=== PATIENT | female | born 1970 | race Caucasian/White ===

== ENCOUNTER 2018-07-24 17:54 | Observation (INO) ==
[2018-07-24] MEDS ORDERED: Sod Chloride 0.9% Inj 1,000 ML IV.SIG ONE (18:17)
--- NOTE | 2018-07-24 18:28 | ED ---
HPI General Chief Complaint: Medical Clearance Stated Complaint: Jojo Eval/DBPD Time Seen by Provider: 07/24/18 18:06 Source: patient, RN notes reviewed and police Mode of arrival: ambulatory Limitations: no limitations History of Present Illness HPI Narrative: 40-year-old female is brought to the emergency department under [employer] for local police for psychiatric evaluation. According the [employer] act , the patient attempted overdose on Zoloft and was drinking alcohol. The patient states that her and she took some of his pills believing that it would lower her heart rate, but she has no idea what it was. She states she thought it started with a "SELMA". Patient states she took a handful and states it was approximately 6-7 pills around noon. She admits to drinking alcohol, tequila, since 11 am today. She states she has a lot of stress in her life and has been fighting with her boyfriend as well. Patient states that she took the pills to "calm down". She denies suicidal ideation to me. Moderate severity. Upon further investigating, it appears she took sotalol. MD complaint: Reports intentional overdose Onset (ago): unknown Intent: wanted to go to sleep Context: Intentional Overdose: relationship problems Associated symptoms: depression Treatments Prior to Arrival: other ([employer] Act) Related Data Allergies Allergy/AdvReac Type Severity Reaction Status Date / Time No Known Allergies Allergy Verified 07/24/18 18:17 Review of Systems ROS: all other systems reviewed are negative PMFSH Medical History Medical History Arrhythmia (Acute) Depression (Acute) Social History Social History Substance History: Active Abuse Second Hand Smoke Exposure: Yes Smoking Status: Current every day smoker Tobacco Type: Cigarettes How Often Do You Have a Drink Containing Alcohol: 2 to 3 times a week Substance Abuse Detail Marijuana: Substance Use Status: Active Route Used Substance Abuse: Inhalation Exam Narrative Exam Narrative: GENERAL: Well-nourished, well-developed female patient, ambulatory. Afebrile. SKIN: Focused skin assessment warm/dry. HEAD: Normocephalic. Atraumatic. EYES: No scleral icterus. No injection or drainage. NECK: Supple, trachea midline. No JVD or lymphadenopathy. CARDIOVASCULAR: Regular rate and rhythm without murmurs, gallops, or rubs. RESPIRATORY: Breath sounds equal bilaterally. No accessory muscle use. Lung sounds are clear to auscultation GASTROINTESTINAL: Abdomen soft, non-tender, nondistended. MUSCULOSKELETAL: No cyanosis, or edema. BACK: Nontender without obvious deformity. No CVA tenderness. PSYCHIATRIC: No delusional thought processes. No hallucinations. Course Initial Documented Vital Signs Pulse Oximetry 98 07/24/18 18:17 Last Documented Vital Signs Temperature 98.4 F 07/25/18 11:00 Pulse Rate 57 L 07/25/18 11:00 Respiratory Rate 20 07/25/18 11:00 Blood Pressure 121/71 07/25/18 11:00 Pulse Oximetry 95 07/25/18 11:00 Medical Decision Making EMRE Attestation EMRE supervised visit: Yes Attestation: I, Dr. Boogie, have reviewed the advance practice practitioner's documentation and am in agreement, met with the patient face to face, made the diagnosis, and the medical decision making was done by me. *My assessment and Findings: Overdose vs. suicidal ideation vs. depression 48yo F with depression here because she was feeling depressed and said she took what sounds like her late 's sotalol. Pt is not very forthcoming with the amount. Said it was about 12pm that she took it so it has been around 6 hours already. Said she did have nausea and vomiting after but not immediately. She is AAOx3 and denies any complaints. Physical exam unremarkable. Will place pt on continuous pvc monitor, obtain EKG, labs including alcohol level, acetaminophen and salicylate level. Pt admits to drinking vodka. No focal neurologic deficits. Labs reviewed, no leukocytosis. H/H normal. Elevated platelet count. Creatinine mildly elevated at 1.48. Calcium mildly elevated at 11.1. Pt given IVF. UA showed RBC 14. WBC 5. Culture not indicated. She is on her menstrual period like blood is likely from that. Salicylate low at 2.0. Acetaminophen less than 2.0. Alcohol 104. Utox positive for cocaine and cannabinoids. Repeat EKG showed a prolong Qtc of 475ms which is worse than prior QTc 456ms. I discussed with poison control and confirmed that sotalol can cause prolong QT. He recommends to repeat EKG Q2 hours until it improves and monitor pt on pvc monitor. Discussed with Dr. Jensen and accepted to his service. MDM Narrative Medical decision making narrative: 40-year-old female presents to the emergency department under [employer] act for psychiatric evaluation by local police. Apparently, she took a handful of what is believed to be sotalol and has been drinking tequila. [employer] act states she took a Zoloft. EKG, CBC, CMP, magnesium , PT/INR, alcohol level, urine drug screen, salicylate level, Tylenol level are ordered and pending. Patient is given normal saline 1 L IV bolus. I spoke to poison control @ [id number]. Poison control recommends, UDS, acetaminophen level, salicylate level, alcohol, CMP, coags, UPT, EKG, cardiac monitoring, symptomatic and supportive care, repeat EKG in 2 hours; monitor for 6 hours. EKG shows SR, HR 61, no acute ST changes. CBC shows no acute abnormality. CMP shows creatinine of 1.48. Magnesium is 2.2. PT/INR is 10.0/1.0. PTT is 20.8. Alcohol level is 104. UDS is positive for cocaine and cannabinoids. Salicylate level is 2.0. Acetaminophen level is less than 2.0. UPT is negative. Dr. Boogie will monitor patient and medically clear patient when appropriate. Medical Screen Exam Complete: Yes Emergency Medical Condition: Yes Differential Diagnosis Differential Diagnosis: overdose vs. depression vs. anxiety vs. suicidal ideation Medical Records Medical records reviewed: Yes I reviewed the patient's medical records. Lab Data Result diagrams: 07/25/18 06:49 07/25/18 06:49 POC Results POC Urine Results Negative Lab Results 07/24/18 07/24/18 07/24/18 Range/Units 18:45 18:45 18:45 WBC 7.4 (4.0-11.0) th/mm3 RBC 4.27 (4.00-5.30) mil/mm3 Hgb 12.0 (11.6-15.3) gm/dL Hct 35.4 (35.0-46.0) % MCV 82.9 (80.0-100.0) fL MCH 28.1 (27.0-34.0) pg MCHC 33.9 (32.0-36.0) % RDW 13.9 (11.6-17.2) % Plt Count 685 H (150-450) th/mm3 MPV 7.1 (7.0-11.0) fL Neut % (Auto) 71.6 H (16.0-70.0) % Lymph % (Auto) 18.0 (9.0-44.0) % [place] % (Auto) 4.5 (0.0-8.0) % Eos % (Auto) 4.9 H (0.0-4.0) % Baso % (Auto) 1.0 (0.0-2.0) % Neut # (Auto) 5.3 (1.8-7.7) th/mm3 Lymph # (Auto) 1.3 (1.0-4.8) th/mm3 [place] # (Auto) 0.3 (0.0-0.9) th/mm3 Eos # (Auto) 0.4 (0.0-0.4) th/mm3 Baso # (Auto) 0.1 (0.0-0.2) th/mm3 WBC Differential . Differential Comment Auto diff final PT 10.0 (9.8-11.6) sec INR 1.0 Ratio APTT (23.4-31.7) sec Sodium 140 (136-145) meq/L Potassium 3.8 (3.5-5.1) meq/L Chloride 105 (98-107) meq/L Carbon Dioxide 27.5 (21.0-32.0) meq/L Anion Gap 8 (5-15) meq/L BUN 9 (7-18) mg/dL Creatinine 1.48 H (0.50-1.00) mg/dL Estimated GFR 38 L (>89) mL/min Random Glucose 112 H (74-106) mg/dL Calcium 11.1 H (8.5-10.1) mg/dL Magnesium 2.2 (1.5-2.5) mg/dL Total Bilirubin 0.2 (0.2-1.0) mg/dL AST 14 L (15-37) U/L ALT 15 (10-53) U/L Alkaline Phosphatase 109 (45-117) U/L Total Protein 7.8 (6.4-8.2) g/dL Albumin 3.4 (3.4-5.0) g/dL TSH (0.358-3.740) uIU/mL Urine Color (Yellw/Straw) Urine Clarity (Clear) Urine pH (5.0-8.5) Ur Specific [place] (1.002-1.035) Urine Protein (Neg-Trace) mg/dL Urine Glucose (UA) (Negative) mg/dL Urine Ketones (Negative) mg/dL Urine Occult Blood (Negative) Urine Nitrate (Negative) Urine Bilirubin (Negative) Urine Urobilinogen (Less than 2) mg/dL Ur Leukocyte Esterase (Negative) Urine RBC (0-3) /hpf Urine WBC (0-5) /hpf Ur Squamous Epith Cells (0-5) /hpf Urine Bacteria (None) /hpf Urine Mucus (Occasional) /lpf Micro UA Comment Ur Microscopic Review Urine Culture Comments Salicylates (2.8-20.0) mg/dL Urine Opiates Screen (Neg) Acetaminophen Less than 2.0 L (10.0-30.0) mcg/mL Ur Barbiturates Screen (Neg) Ur Amphetamines Screen (Neg) U Benzodiazepines Scrn (Neg) Urine Cocaine Screen (Neg) U Cannabinoids Screen (Neg) Serum Alcohol 104 H (0-5) mg/dL 07/24/18 07/24/18 07/24/18 Range/Units 18:45 18:45 19:53 WBC (4.0-11.0) th/mm3 RBC (4.00-5.30) mil/mm3 Hgb (11.6-15.3) gm/dL Hct (35.0-46.0) % MCV (80.0-100.0) fL MCH (27.0-34.0) pg MCHC (32.0-36.0) % RDW (11.6-17.2) % Plt Count (150-450) th/mm3 MPV (7.0-11.0) fL Neut % (Auto) (16.0-70.0) % Lymph % (Auto) (9.0-44.0) % [place] % (Auto) (0.0-8.0) % Eos % (Auto) (0.0-4.0) % Baso % (Auto) (0.0-2.0) % Neut # (Auto) (1.8-7.7) th/mm3 Lymph # (Auto) (1.0-4.8) th/mm3 [place] # (Auto) (0.0-0.9) th/mm3 Eos # (Auto) (0.0-0.4) th/mm3 Baso # (Auto) (0.0-0.2) th/mm3 WBC Differential Differential Comment PT (9.8-11.6) sec INR Ratio APTT 20.8 L (23.4-31.7) sec Sodium (136-145) meq/L Potassium (3.5-5.1) meq/L Chloride (98-107) meq/L Carbon Dioxide (21.0-32.0) meq/L Anion Gap (5-15) meq/L BUN (7-18) mg/dL Creatinine (0.50-1.00) mg/dL Estimated GFR (>89) mL/min Random Glucose (74-106) mg/dL Calcium (8.5-10.1) mg/dL Magnesium (1.5-2.5) mg/dL Total Bilirubin (0.2-1.0) mg/dL AST (15-37) U/L ALT (10-53) U/L Alkaline Phosphatase (45-117) U/L Total Protein (6.4-8.2) g/dL Albumin (3.4-5.0) g/dL TSH (0.358-3.740) uIU/mL Urine Color (Yellw/Straw) Urine Clarity (Clear) Urine pH (5.0-8.5) Ur Specific [place] (1.002-1.035) Urine Protein (Neg-Trace) mg/dL Urine Glucose (UA) (Negative) mg/dL Urine Ketones (Negative) mg/dL Urine Occult Blood (Negative) Urine Nitrate (Negative) Urine Bilirubin (Negative) Urine Urobilinogen (Less than 2) mg/dL Ur Leukocyte Esterase (Negative) Urine RBC (0-3) /hpf Urine WBC (0-5) /hpf Ur Squamous Epith Cells (0-5) /hpf Urine Bacteria (None) /hpf Urine Mucus (Occasional) /lpf Micro UA Comment Ur Microscopic Review Urine Culture Comments Salicylates 2.0 L (2.8-20.0) mg/dL Urine Opiates Screen Neg (Neg) Acetaminophen (10.0-30.0) mcg/mL Ur Barbiturates Screen Neg (Neg) Ur Amphetamines Screen Neg (Neg) U Benzodiazepines Scrn Neg (Neg) Urine Cocaine Screen Pos H (Neg) U Cannabinoids Screen Pos H (Neg) Serum Alcohol (0-5) mg/dL 07/24/18 07/25/18 07/25/18 Range/Units 19:53 06:49 06:49 WBC 7.7 (4.0-11.0) th/mm3 RBC 3.49 L (4.00-5.30) mil/mm3 Hgb 10.1 L (11.6-15.3) gm/dL Hct 28.8 L (35.0-46.0) % MCV 82.4 (80.0-100.0) fL MCH 28.9 (27.0-34.0) pg MCHC 35.1 (32.0-36.0) % RDW 13.8 (11.6-17.2) % Plt Count 562 H (150-450) th/mm3 MPV 7.1 (7.0-11.0) fL Neut % (Auto) 60.1 (16.0-70.0) % Lymph % (Auto) 28.1 (9.0-44.0) % [place] % (Auto) 8.1 H (0.0-8.0) % Eos % (Auto) 2.8 (0.0-4.0) % Baso % (Auto) 0.9 (0.0-2.0) % Neut # (Auto) 4.7 (1.8-7.7) th/mm3 Lymph # (Auto) 2.2 (1.0-4.8) th/mm3 [place] # (Auto) 0.6 (0.0-0.9) th/mm3 Eos # (Auto) 0.2 (0.0-0.4) th/mm3 Baso # (Auto) 0.1 (0.0-0.2) th/mm3 WBC Differential . Differential Comment Auto diff final PT (9.8-11.6) sec INR Ratio APTT (23.4-31.7) sec Sodium 144 (136-145) meq/L Potassium 3.8 (3.5-5.1) meq/L Chloride 111 H (98-107) meq/L Carbon Dioxide 24.6 (21.0-32.0) meq/L Anion Gap 8 (5-15) meq/L BUN 9 (7-18) mg/dL Creatinine 1.03 H (0.50-1.00) mg/dL Estimated GFR 57 L (>89) mL/min Random Glucose 79 (74-106) mg/dL Calcium 10.5 H (8.5-10.1) mg/dL Magnesium (1.5-2.5) mg/dL Total Bilirubin (0.2-1.0) mg/dL AST (15-37) U/L ALT (10-53) U/L Alkaline Phosphatase (45-117) U/L Total Protein (6.4-8.2) g/dL Albumin (3.4-5.0) g/dL TSH (0.358-3.740) uIU/mL Urine Color Light-yellow (Yellw/Straw) Urine Clarity Clear (Clear) Urine pH 6.0 (5.0-8.5) Ur Specific [place] 1.004 (1.002-1.035) Urine Protein Negative (Neg-Trace) mg/dL Urine Glucose (UA) Negative (Negative) mg/dL Urine Ketones Negative (Negative) mg/dL Urine Occult Blood Large H (Negative) Urine Nitrate Negative (Negative) Urine Bilirubin Negative (Negative) Urine Urobilinogen Less than 2 (Less than 2) mg/dL Ur Leukocyte Esterase Trace H (Negative) Urine RBC 14 H (0-3) /hpf Urine WBC 5 (0-5) /hpf Ur Squamous Epith Cells 1 (0-5) /hpf Urine Bacteria Occasional H (None) /hpf Urine Mucus Few H (Occasional) /lpf Micro UA Comment Culture not ind Ur Microscopic Review Not Reportable Urine Culture Comments Culture not ind Salicylates (2.8-20.0) mg/dL Urine Opiates Screen (Neg) Acetaminophen (10.0-30.0) mcg/mL Ur Barbiturates Screen (Neg) Ur Amphetamines Screen (Neg) U Benzodiazepines Scrn (Neg) Urine Cocaine Screen (Neg) U Cannabinoids Screen (Neg) Serum Alcohol (0-5) mg/dL 07/25/18 Range/Units 06:49 WBC (4.0-11.0) th/mm3 RBC (4.00-5.30) mil/mm3 Hgb (11.6-15.3) gm/dL Hct (35.0-46.0) % MCV (80.0-100.0) fL MCH (27.0-34.0) pg MCHC (32.0-36.0) % RDW (11.6-17.2) % Plt Count (150-450) th/mm3 MPV (7.0-11.0) fL Neut % (Auto) (16.0-70.0) % Lymph % (Auto) (9.0-44.0) % [place] % (Auto) (0.0-8.0) % Eos % (Auto) (0.0-4.0) % Baso % (Auto) (0.0-2.0) % Neut # (Auto) (1.8-7.7) th/mm3 Lymph # (Auto) (1.0-4.8) th/mm3 [place] # (Auto) (0.0-0.9) th/mm3 Eos # (Auto) (0.0-0.4) th/mm3 Baso # (Auto) (0.0-0.2) th/mm3 WBC Differential Differential Comment PT (9.8-11.6) sec INR Ratio APTT (23.4-31.7) sec Sodium (136-145) meq/L Potassium (3.5-5.1) meq/L Chloride (98-107) meq/L Carbon Dioxide (21.0-32.0) meq/L Anion Gap (5-15) meq/L BUN (7-18) mg/dL Creatinine (0.50-1.00) mg/dL Estimated GFR (>89) mL/min Random Glucose (74-106) mg/dL Calcium (8.5-10.1) mg/dL Magnesium (1.5-2.5) mg/dL Total Bilirubin (0.2-1.0) mg/dL AST (15-37) U/L ALT (10-53) U/L Alkaline Phosphatase (45-117) U/L Total Protein (6.4-8.2) g/dL Albumin (3.4-5.0) g/dL TSH 1.120 (0.358-3.740) uIU/mL Urine Color (Yellw/Straw) Urine Clarity (Clear) Urine pH (5.0-8.5) Ur Specific [place] (1.002-1.035) Urine Protein (Neg-Trace) mg/dL Urine Glucose (UA) (Negative) mg/dL Urine Ketones (Negative) mg/dL Urine Occult Blood (Negative) Urine Nitrate (Negative) Urine Bilirubin (Negative) Urine Urobilinogen (Less than 2) mg/dL Ur Leukocyte Esterase (Negative) Urine RBC (0-3) /hpf Urine WBC (0-5) /hpf Ur Squamous Epith Cells (0-5) /hpf Urine Bacteria (None) /hpf Urine Mucus (Occasional) /lpf Micro UA Comment Ur Microscopic Review Urine Culture Comments Salicylates (2.8-20.0) mg/dL Urine Opiates Screen (Neg) Acetaminophen (10.0-30.0) mcg/mL Ur Barbiturates Screen (Neg) Ur Amphetamines Screen (Neg) U Benzodiazepines Scrn (Neg) Urine Cocaine Screen (Neg) U Cannabinoids Screen (Neg) Serum Alcohol (0-5) mg/dL ECG Data EKG Prior to Arrival: No Attestation: I personally reviewed and interpreted this ECG as follows: Interpretation: NSR 61bpm. Normal axis. TWI V2. Mild ST depression V3-V6. QTc 456ms. Narrow QRS. Discharge Plan Discharge Disposition Patient Disposition: 30 Still Patient Discharge Condition Condition: Stable Discharge Order Discharge Orders: Discharge Order (Routine); Ordered 07/25/18 Ordered By: Xi De León Discharge Details Diagnosis: Overdose Physicians Team ED Provider: Mickie Boogie ED Midlevel Provider: Juany Hay Primary Care Provider: UNKNOWN, Attending Provider: Vishal Jensen Other Providers: Scooter Smith Status ED Status: Left Department Discharge Information Discharge Date/Time: 07/24/18 23:07
[2018-07-24 19:12] LABS: Baso # (Auto) 0.1 th/mm3 (0.0-0.2); Eos # (Auto) 0.4 th/mm3 (0.0-0.4); Eos % (Auto) 4.9 % (0.0-4.0); Hematocrit 35.4 % (35.0-46.0); Lymph # (Auto) 1.3 th/mm3 (1.0-4.8); Mean Corpuscular HGB Conc 33.9 % (32.0-36.0); Mean Corpuscular Hemoglobin 28.1 pg (27.0-34.0); Mean Corpuscular Volume 82.9 fL (80.0-100.0); Mean Platelet Volume 7.1 fL (7.0-11.0); Mono # (Auto) 0.3 th/mm3 (0.0-0.9); Mono % (Auto) 4.5 % (0.0-8.0); Neut # (Auto) 5.3 th/mm3 (1.8-7.7); Neut % (Auto) 71.6 % (16.0-70.0); Platelet Count 685 th/mm3 (150-450); Red Blood Count 4.27 mil/mm3 (4.00-5.30); Red Cell Distribution Width 13.9 % (11.6-17.2); White Blood Count 7.4 th/mm3 (4.0-11.0)
[2018-07-24 19:28] LABS: Albumin 3.4 g/dL (3.4-5.0); Anion Gap 8 meq/L (5-15); Blood Urea Nitrogen 9 mg/dL (7-18); Calcium 11.1 mg/dL (8.5-10.1); Carbon Dioxide 27.5 meq/L (21.0-32.0); Chloride 105 meq/L (98-107); Glomerular Filtration Rate 38 mL/min (>89); Glucose,Random 112 mg/dL (74-106); Magnesium 2.2 mg/dL (1.5-2.5); Potassium 3.8 meq/L (3.5-5.1); Sodium 140 meq/L (136-145)
[2018-07-24 19:29] LABS: Alanine Aminotransferase 15 U/L (10-53); Alcohol 104 mg/dL (0-5); Aspartate Aminotransferase 14 U/L (15-37)
[2018-07-24 19:31] LABS: Alkaline Phosphatase 109 U/L (45-117); Total Protein 7.8 g/dL (6.4-8.2)
[2018-07-24 20:18] LABS: Amphetamine Screen,Urine Neg (Neg); Barbiturate Screen,Urine Neg (Neg); Cannabinoid Screen,Urine Pos (Neg); Cocaine Screen,Urine Pos (Neg); Opiate Screen,Urine Neg (Neg)
[2018-07-24 20:30] LABS: Bacteria,Urine Occasional /hpf; Bilirubin,Urine Negative (Negative); Clarity,Urine Clear (Clear); Glucose,Urine (UA) Negative (Negative); Leukocyte Esterase,Urine Trace (Negative); Mucus,Urine Few /lpf (Occasional); Nitrite,Urine Negative (Negative); Specific Gravity,Urine 1.004 (1.002-1.035); Squamous Epithelial Cell,Urine 1 /hpf (0-5)
[2018-07-24 20:31] LABS: Color,Urine Light-Yellow (Yellw/Straw)
[2018-07-24] MEDS ORDERED: Sod Chloride 0.9% Inj 1,000 ML IV.SIG SCH (21:30)
[2018-07-24] MEDS ORDERED: Acetaminophen 325 MG Tablet PO PRN (21:51)
[2018-07-24] MEDS ORDERED: Bisacodyl 10 MG Supp RECTAL PRN (21:51)
[2018-07-24] MEDS: Sod Chloride 0.9% Inj 1,000 ML IV.CONT SCH (23:04)
--- NOTE | 2018-07-25 07:05 | P.HPIM ---
History of Present Illness Primary Care Physician: Dr. Chinchilla at [facility] Chief Complaint: overdose History of Present Illness: This a 48-year-old female patient with past medical history which includes carpal tunnel syndrome bilateral upper extremities, generalized anxiety disorder, major depressive disorder, nicotine dependence and hyperparathyroidism. Patient was brought to the emergency department under [employer] act for local police for psychiatric evaluation. According the [employer] act , the patient attempted overdose on Zoloft and was drinking alcohol. The patient states that her and she took some of his pills believing that it would lower her heart rate, but she has no idea what it was. She states she thought it started with a "SELMA". Patient states she took a handful and states it was approximately 6-7 pills around noon 07/24/18. She admits to drinking alcohol, tequila, since 11 am 07/24/18. She states she has a lot of stress in her life and has been fighting with her boyfriend as well. Patient states that she took the pills to "calm down". Upon further investigating, it appears she took 6-7 tablets of sotalol. Patient reports wanted to go to sleep. At this time patient is able to awake to verbal stimuli. Denies shortness of breath chest pain nausea vomiting diarrhea constipation fevers or chills. PMH: carpal tunnel syndrome bilateral upper extremities, generalized anxiety disorder , major depressive disorder, nicotine dependence and hyperparathyroidism PSxH: Cholecystectomy 2017 Family medical history Father had a stroke and heart disease Social history Patient is a EtOH use 2-3 times per week Smokes approximately 1 pack/week only when she drinks Urine tox positive for cocaine and cannabinoids. Medications and Allergies Allergies Allergy/AdvReac Type Severity Reaction Status Date / Time No Known Allergies Allergy Verified 07/24/18 18:17 Active Medications: Active Medications Acetaminophen (Tylenol) 650 mg PO Q4H PRN PRN Reason: Temp > 100.4 Al Hydroxide/Mg Hydroxide (Milk Of Magnesia Liq) 30 ml PO Q12H PRN PRN Reason: Mild Constipation Bisacodyl (Dulcolax Supp) 10 mg RECTAL DAILY PRN PRN Reason: SEVERE CONSITIPATION Sodium Chloride (Ns Inj) 1,000 mls @ 100 mls/hr IV.CONT .Q10H KAITLYNN Last Admin: 07/24/18 23:04 Dose: 100 mls/hr Lactulose (Lactulose Liq) 30 ml PO DAILY PRN PRN Reason: SEVERE CONSITIPATION Ondansetron HCl (Zofran Inj) 4 mg IV.PUSH Q6H PRN PRN Reason: NAUSEA OR VOMITING Senna/Docusate Sodium (Karen-Colace) 1 tab PO BID KAITLYNN Sennosides (Senokot) 17.2 mg PO Q12H PRN PRN Reason: Moderate Constipation Sodium Chloride (Ns Flush) 2 ml IV.FLUSH PRN PRN PRN Reason: FLUSH AFTER USING IV ACCESS Physical Exam Vital signs: Last Vital Signs Temp 98.6 F 07/25/18 03:47 Pulse 70 07/25/18 03:47 Resp 16 07/25/18 03:47 BP 115/69 07/25/18 03:47 Pulse Ox 95 07/25/18 03:47 Narrative: GENERAL: This is a well-nourished, well-developed patient, in no apparent distress. CARDIOVASCULAR: Regular rate and rhythm RESPIRATORY: Clear to auscultation. Breath sounds equal bilaterally. GASTROINTESTINAL: Abdomen soft, non-tender, nondistended. Normal active bowel sounds MUSCULOSKELETAL: Extremities without clubbing, cyanosis, or edema. NEURO: Alert & Oriented x4 to person, place, time, situation. Moves all ext x4 Results Labs CBC & Chem 7: 07/25/18 06:49 07/25/18 06:49 Caprini VTE Risk Assessment Caprini VTE Risk Assessment: No/Low Risk (score <= 1) Caprini Risk Assessment Model: Point Value = 1 Point Value = 2 Point Value = 3 Point Value = 5 Age 41-60 Minor surgery BMI > 25 kg/m2 Swollen legs Varicose veins or History of unexplained or recurrent spontaneous Oral contraceptives or hormone replacement Sepsis (< 1 month) Serious lung disease, including pneumonia (< 1 month) Abnormal pulmonary function Acute myocardial infarction Congestive heart failure (< 1 month) History of inflammatory bowel disease Medical patient at bed rest Age 61-74 Arthroscopic surgery Major open surgery (> 45 min) Laparoscopic surgery (> 45 min) Malignancy Confined to bed (> 72 hours) Immobilizing plaster cast Central venous access Age >= 75 History of VTE Family history of VTE Factor V Leiden Prothrombin [id number] Lupus anticoagulant Anticardiolipin antibodies Elevated serum homocysteine Heparin-induced thrombocytopenia Other congenital or acquired thrombophilia Stroke (< 1 month) Elective arthroplasty Hip, pelvis, or leg fracture Acute spinal cord injury (< 1 month) Prophylaxis Regimen: Total Risk Factor Score Risk Level Prophylaxis Regimen 0-1 Low Early ambulation 2 Moderate Order ONE of the following: *Sequential Compression Device (SCD) *Heparin 5000 units SQ BID 3-4 Higher Order ONE of the following medications: *Heparin 5000 units SQ TID *Enoxaparin/Lovenox 40 mg SQ daily (WT < 150 kg, CrCl > 30 mL/min) *Enoxaparin/Lovenox 30 mg SQ daily (WT < 150 kg, CrCl > 10-29 mL/min) *Enoxaparin/Lovenox 30 mg SQ BID (WT < 150 kg, CrCl > 30 mL/min) AND/OR *Sequential Compression Device (SCD) 5 or more Highest Order ONE of the following medications: *Heparin 5000 units SQ TID (Preferred with Epidurals) *Enoxaparin/Lovenox 40 mg SQ daily (WT < 150 kg, CrCl > 30 mL/min) *Enoxaparin/Lovenox 30 mg SQ daily (WT < 150 kg, CrCl > 10-29 mL/min) *Enoxaparin/Lovenox 30 mg SQ BID (WT < 150 kg, CrCl > 30 mL/min) AND *Sequential Compression Device (SCD) Assessment and Plan Plan This a 48-year-old female patient with past medical history which includes carpal tunnel syndrome bilateral upper extremities, generalized anxiety disorder , major depressive disorder, nicotine dependence and hyperparathyroidism. Patient was brought to the emergency department under [employer] act for local police for psychiatric evaluation. According the [employer] act, the patient attempted overdose and was drinking alcohol. Upon further investigating, it appears she took approximately 6-7 tablets of sotalol. Patient reports wanted to go to sleep. Sotalol overdose Anxiety/Depression ER provider spoke with poison control @ 2311 07/24/18. Per ER documentation Poison control recommends, UDS, acetaminophen level, salicylate level, alcohol, CMP, coags, UPT, EKG, cardiac monitoring, symptomatic and supportive care, repeat EKG in 2 hours; monitor for 6 hours. Salicylate low at 2.0. Acetaminophen less than 2.0. Alcohol 104. Urine tox positive for cocaine and cannabinoids. Initial EKG revealed: NSR 61bpm. Normal axis. TWI V2. Mild ST depression V3- V6. QTc 456ms. Repeat EKG showed a prolong Qtc of 475ms which is worse than prior QTc 456ms. repeat EKG Q2 hours until it improves and monitor pt on supervisor payroll. serial QTc 456 -> 475 -> 488 -> 455 -> 442 Continuous telemetry monitoring Consultation to psychiatry, recommending admission to in patient psych for stabilization DC to in patient pysch for stabilization and medication adjustment JANINE Review of outpatient records reveals baseline creatinine around 0.67, 0.57 On admission patient's BUN was 9 creatinine was 1.48 with an estimated GFR of 38 repeat creatinine 07/25 1.03 IV fluids DVT prophylaxis with SCDs DC to in patient pysch Attending Attestation Patient examined. Assessment and plan formulated with Xi De León PA-C. I agree with the above. overdose on sotolol. but pt admits she immediately vomited most of them back up. overnight the QTc prolonged but the final 2 ekg's showed much impovement. She has some sinus jayjay but denies any dizziness. she is not happy about transfer to psych unit. she gives hx of hypercalcemia and primary hyperparathyroidism. H&P: Quality VTE Deep Vein Thrombosis/Pulmonary Embolism Present on Admission: No
[2018-07-25 08:33] LABS: Baso # (Auto) 0.1 th/mm3 (0.0-0.2); Baso % (Auto) 0.9 % (0.0-2.0); Eos # (Auto) 0.2 th/mm3 (0.0-0.4); Eos % (Auto) 2.8 % (0.0-4.0); Hematocrit 28.8 % (35.0-46.0); Hemoglobin 10.1 gm/dL (11.6-15.3); Lymph # (Auto) 2.2 th/mm3 (1.0-4.8); Lymph % (Auto) 28.1 % (9.0-44.0); Mean Corpuscular HGB Conc 35.1 % (32.0-36.0); Mean Corpuscular Hemoglobin 28.9 pg (27.0-34.0); Mean Corpuscular Volume 82.4 fL (80.0-100.0); Mean Platelet Volume 7.1 fL (7.0-11.0); Mono # (Auto) 0.6 th/mm3 (0.0-0.9); Mono % (Auto) 8.1 % (0.0-8.0); Neut # (Auto) 4.7 th/mm3 (1.8-7.7); Neut % (Auto) 60.1 % (16.0-70.0); Platelet Count 562 th/mm3 (150-450); Red Blood Count 3.49 mil/mm3 (4.00-5.30); Red Cell Distribution Width 13.8 % (11.6-17.2); White Blood Count 7.7 th/mm3 (4.0-11.0)
[2018-07-25 08:59] LABS: Calcium 10.5 mg/dL (8.5-10.1); Carbon Dioxide 24.6 meq/L (21.0-32.0); Potassium 3.8 meq/L (3.5-5.1)
[2018-07-25] MEDS ORDERED: Senna/Docusate Sodium 8.6/50 MG Tablet PO SCH (09:00)
[2018-07-25] MEDS: Sod Chloride 0.9% Inj 1,000 ML IV.CONT SCH (09:04)
--- NOTE | 2018-07-25 09:34 | MB ---
cc: Olvin Mcgraw MD DATE: 07/25/2018 PHYSICIAN REQUESTING CONSULTATION: Vishal Jensen MD REASON FOR CONSULTATION: Drug overdose, depression. HISTORY OF PRESENT ILLNESS: Ms. Funk is a 48-year-old female with no reported previous psychiatric diagnoses, who presents under a Rodriguez Act by law enforcement alleging that the patient overdosed on Zoloft and alcohol. The patient reportedly told officers that this was to slow down her heart rate, but officers obtained collateral from the patient's boyfriend indicating that there was some concern for intentional overdose for self-harm. Reviewing the electronic medical record, I see no previous psychiatric contact within our system. The patient has been medically admitted for management of her overdose, and it appears that the patient in fact overdosed on sotalol, not Zoloft. The patient seen and examined. Chart reviewed. Case discussed with midlevel provider from the primary team. On my examination today, the patient says that she made her presenting overdose on 5-7 sotalol tablets in the setting of alcohol intoxication. She says that she made this overdose in front of her boyfriend "just to get attention." She said that she wanted her boyfriend to listen to her, because she is not happy being in [facility] and wants to return to [place] where her children are located. She does admit to feeling depressed and her affect is fairly dysphoric. She says that she has been feeling this way since her 's passing in 12/2017. In addition to low mood, the patient endorses 15-20 pound weight loss since 12/2017 secondary to not eating properly. She seems fairly anhedonic. She denies any suicidal or homicidal ideation at this time, although it is unclear whether she is reliable to contract for safety. She denies any audiovisual hallucinations. I can elicit no delusional material. I can elicit no hypomanic or manic symptoms, nor does the patient provide any history of same. The remainder of the psychiatric ROS is negative. No acute physical complaints. With the patient's permission, I did endeavor to obtain collateral information from her boyfriend, Kostas Martinez at [phone]. I have left a generic voicemail for Mr. Martinez requesting a call back. PAST PSYCHIATRIC HISTORY: The patient reports that she has had difficulty adjusting following her 's passing, although it does not appear she has received a formal psychiatric diagnosis. She has seen psychiatrists in the past. She denies any history of psychiatric admissions or suicide attempts, however. FAMILY HISTORY: Patient reports that one of her children completed suicide in 2006. CHEMICAL DEPENDENCY HISTORY: The patient admits to use of crack cocaine and alcohol. She says that her alcohol consumption has cut down recently. She does admit to drinking more heavily than she has lately last night. Typical consumption is 1 or 2 mixed drinks per week per patient report. She denies any history of blackouts, DTs, or seizures. She also admits to use of cannabis for the first time since adolescence last night to "mellow me out." SOCIAL HISTORY: The patient reports that her second in 12/2017. She was previously and . She is presently with her boyfriend Kostas and has been with him for about 6 months. She has 4 children. She denies any history. Denies any legal history. Denies any access to guns or firearms. Denies any restorationism or spiritual beliefs. Denies any history of abuse or mistreatment. PAST MEDICAL HISTORY: Includes a chart history of arrhythmia. MEDICATIONS: Sotalol 80 mg daily. ALLERGIES: NO KNOWN ALLERGIES. REVIEW OF SYSTEMS: Except as noted in HPI, this is negative. PHYSICAL EXAMINATION: VITAL SIGNS: Temperature is 98.6, pulse 56, respirations 20, blood pressure 146/74, pulse oximetry 94% on room air. Physical examination has been completed by the primary team. On my examination today, the patient is clinically sober. She has no abnormal motor movements. There is no evidence of intoxication or withdrawal at this time. LABORATORY DATA: Reviewed. CBC reveals a normocytic anemia with a hemoglobin of 10.1, platelet count is 562, slightly elevated, white blood cell count is 7.7, within normal limits. BMP reveals decreased GFR at 57. LFTs are within normal limits. Urinalysis reveals large occult blood and trace leukocyte esterase, but no pyuria. Urine toxicology is positive for cocaine and cannabinoids. Alcohol level was 104 on presentation here. MENTAL STATUS EXAMINATION: The patient is in hospital attire. She is fairly well groomed. She is awake and alert and oriented x3. No evidence of delirium. No motor abnormalities noted. Speech is somewhat slow with increased speech latency. Language and fund of knowledge are average. Focus and concentration are intact. Memory is grossly intact on clinical exam. Mood is depressed and affect is restricted and dysphoric. Thought process linear but somewhat slowed. No loosening of associations. No delusional material elicited. Denies any auditory or visual hallucinations. He denies any suicidal or homicidal ideation, intent or plan, although it is unclear whether she is reliable to contract for safety. Insight and judgment seem poor. ASSESSMENT: 1. Adjustment disorder with depressed mood, F43.21, rule out major depressive episode. 2. Polysubstance abuse, F19.10 This is a 48-year-old female with psychiatric history as detailed above, who presents under a Rodriguez Act following a sotalol overdose in the setting of alcohol intoxication. On my examination today, the patient reports that the presenting overdose was gestural to get attention from her boyfriend. The patient does admit to depressive symptomatology, and a major depressive episode is in the differential diagnosis. The patient has several acute risk factors for self-harm, including recent overdose, recent intoxication, depressive symptoms. She also has several chronic risk factors including likely substance use disorder, family history of suicide attempts, multiple recent losses, including loss of job and . It appears there are limited protective factors presently, although collateral information is not available at present. Weighing the relevant factors, I regional commercial sales manager that the patient is presently at increased risk for ongoing self-harm and, barring some extremely reassuring collateral information, likely will require psychiatric hospitalization for observation and perhaps stabilization. I would recommend continuing the patient with a sitter for safety while she is in the CDU. I would also recommend considering initiation of a CIWA scale for management of any alcohol withdrawal. Following medical stabilization, please contact the psych charge nurse to reach out to on-call psychiatrist to discuss transfer to inpatient psychiatric unit. Medical psychiatric unit might also be an alternative prior to medical clearance, so long as the patient does not require telemetry or other measures not available on the medical psychiatric unit. I will defer psychotropic medication management to the inpatient psychiatric team. Thank you very much for this consultation. Please call or page [phone] during daylight hours with questions. MD JACQUE Capellanfrancis , 09:04 AM , 09:19 AM BRENDA
--- NOTE | 2018-07-25 17:14 | ECG ---
Date Performed: 07/24/2018 Time Performed: 18:44:52 PTAGE: 48 years EKG: Sinus rhythm NONSPECIFIC T-WAVE ABNORMALITY BORDERLINE ECG NO PREVIOUS TRACING DOCTOR: Tien Pryor Interpretating Date/Time 07/25/2018 17:11:57
--- NOTE | 2018-07-25 17:30 | ECG ---
Date Performed: 07/24/2018 Time Performed: 22:34:08 PTAGE: 48 years EKG: Sinus rhythm NONSPECIFIC T-WAVE ABNORMALITY PROLONGED QT INTERVAL ABNORMAL ECG PREVIOUS TRACING : 07/24/2018 18.44 Since the previous tracing, no significant change noted DOCTOR: Tien Pryor Interpretating Date/Time 07/25/2018 17:29:12
--- NOTE | 2018-07-25 17:31 | ECG ---
Date Performed: 07/25/2018 Time Performed: 04:14:39 PTAGE: 48 years EKG: SINUS BRADYCARDIA WITH OCCASIONAL SUPRAVENTRICULAR PREMATURE COMPLEXES BORDERLINE ECG PREVIOUS TRACING : 07/25/2018 00.58 Since the previous tracing, no significant change noted DOCTOR: Tien Pryor Interpretating Date/Time 07/25/2018 17:29:27
--- NOTE | 2018-07-25 20:11 | ECG ---
Date Performed: 07/25/2018 Time Performed: 00:58:50 PTAGE: 48 years EKG: Sinus rhythm NONSPECIFIC T-WAVE ABNORMALITY Compared to previous tracing, QT interval slightly shorter BORDERLINE ECG PREVIOUS TRACING : 07/24/2018 22.34 DOCTOR: Tien Pryor Interpretating Date/Time 07/25/2018 20:10:04
--- NOTE | 2018-07-25 20:11 | ECG ---
Date Performed: 07/24/2018 Time Performed: 20:47:54 PTAGE: 48 years EKG: SINUS BRADYCARDIA NONSPECIFIC T-WAVE ABNORMALITY PROLONGED QT INTERVAL Compared to previous tracing, QT interval is slightly longer ABNORMAL ECG NO PREVIOUS TRACING DOCTOR: Tien Pryor Interpretating Date/Time 07/25/2018 20:09:39
== END 2018-07-25 15:11 ==
LOC: NEDA 17:54 → NEDAMB 17:54 → NEPFCDU 22:49
PROVIDERS: ADMIT Hospitalist; ATTEND Hospitalist

== ENCOUNTER 2018-07-25 15:19 | Inpatient (IN) ==
[2018-07-25] MEDS ORDERED: Acetaminophen 325 MG Tablet PO PRN (15:34)
[2018-07-25] MEDS ORDERED: Bisacodyl 10 MG Supp RECTAL PRN (15:34)
[2018-07-25] MEDS ORDERED: Aluminum/Magnesium/Simethacone Susp 30 ML UDC PO PRN (15:34)
[2018-07-25] MEDS ORDERED: Senna/Docusate Sodium 8.6/50 MG Tablet PO SCH (21:00)
[2018-07-26 09:20] LABS: Calcium 10.7 mg/dL (8.5-10.1); Carbon Dioxide 24.4 meq/L (21.0-32.0); Potassium 3.6 meq/L (3.5-5.1)
[2018-07-26 09:30] LABS: Chol/HDL Ratio 5.33 Ratio; HDL Cholesterol 29.8 mg/dL (40.0-60.0); Thyroid Stimulating Hormone 2.75 uIU/mL (0.358-3.740)
--- NOTE | 2018-07-26 09:37 | P.HPPSY ---
Provisional Diagnosis Admission Date: July 25, 2018 15:19 [place] I.: 1. Adjustment disorder with depressed mood 2. Polysubstance abuse [place] II.: Deferred Competence Certification of Person's Competence To Provide Express and Informed Consent I have personally examined Anum Funk, a person being served at [facility] on, July 26, 2018 0937. Express and informed consent means consent voluntarily given in writing, by a competent person, after sufficient explanation and disclosure of the subject matter involved to enable the person to make a knowing and willful decision without any element of force, fraud, deceit, duress, or other form of constraint or coercion. This person is 18 years of age or older, is not now known to be incompetent to consent to treatment with a guardian advocate, and does not have a health care surrogate or proxy currently making medical treatment decisions. I have found this person to be one of the following: [X] Competent to provide express and informed consent, as defined above, for voluntary admission to this facility and is competent to provide express and informed consent for treatment. He/she has the consistent capacity to make well reasoned, willful, and knowing decisions concerning his or her medical or mental health treatment. The person fully and consistently understands the purpose of the admission for examination/placement and is fully capable of personally exercising all rights assured under [place] [] Incompetent to provide express and informed consent to voluntary admission, and this is incompetent to provide express and informed consent to treatment. The person must be transferred to involuntary status and a petition for a guardian advocate filed with the Circuit Court. [] Refusing to provide express and informed consent to voluntary admission but is competent to provide express and informed consent for treatment. The person must be discharged or transferred to involuntary status. Form shall be completed within 24 hours of a person's arrival at the receiving facility and filed in the clinical record of each person: 1. Admitted on a voluntary basis 2. Permitted to provide express and informed consent to his/her own treatment 3. Allowed to transfer from involuntary to voluntary status 4. Prior to permitting a person to consent to his or her own treatment after having been previously found incompetent to consent to treatment. History of Present Illness Capacity: Has capacity Chief Complaint: Rodriguez act History of Present Illness: From my consult note of yesterday: Ms. Funk is a 48-year-old female with no reported previous psychiatric diagnoses, who presents under a Rodriguez Act by law enforcement alleging that the patient overdosed on Zoloft and alcohol. The patient reportedly told officers that this was to slow down her heart rate, but officers obtained collateral from the patient's boyfriend indicating that there was some concern for intentional overdose for self-harm. Reviewing the electronic medical record, I see no previous psychiatric contact within our system. The patient has been medically admitted for management of her overdose, and it appears that the patient in fact overdosed on sotalol, not Zoloft. The patient seen and examined. Chart reviewed. Case discussed with midlevel provider from the primary team. On my examination today, the patient says that she made her presenting overdose on 5-7 sotalol tablets in the setting of alcohol intoxication. She says that she made this overdose in front of her boyfriend "just to get attention." She said that she wanted her boyfriend to listen to her, because she is not happy being in [facility] and wants to return to [place] where her children are located. She does admit to feeling depressed and her affect is fairly dysphoric. She says that she has been feeling this way since her 's passing in 12/2017. In addition to low mood, the patient endorses 15-20 pound weight loss since 12/2017 secondary to not eating properly. She seems fairly anhedonic. She denies any suicidal or homicidal ideation at this time, although it is unclear whether she is reliable to contract for safety. She denies any audiovisual hallucinations. I can elicit no delusional material. I can elicit no hypomanic or manic symptoms, nor does the patient provide any history of same. The remainder of the psychiatric ROS is negative. No acute physical complaints. With the patient's permission, I did endeavor to obtain collateral information from her boyfriend, Kostas Martinez at [phone]. I have left a generic voicemail for Mr. Martinez requesting a call back. PAST PSYCHIATRIC HISTORY: The patient reports that she has had difficulty adjusting following her 's passing, although it does not appear she has received a formal psychiatric diagnosis. She has seen psychiatrists in the past. She denies any history of psychiatric admissions or suicide attempts, however. FAMILY HISTORY: Patient reports that one of her children completed suicide in 2006. CHEMICAL DEPENDENCY HISTORY: The patient admits to use of crack cocaine and alcohol. She says that her alcohol consumption has cut down recently. She does admit to drinking more heavily than she has lately last night. Typical consumption is 1 or 2 mixed drinks per week per patient report. She denies any history of blackouts, DTs, or seizures. She also admits to use of cannabis for the first time since adolescence last night to "mellow me out." SOCIAL HISTORY: The patient reports that her second in 12/2017. She was previously and . She is presently with her boyfriend Kostas and has been with him for about 6 months. She has 4 children. She denies any history. Denies any legal history. Denies any access to guns or firearms. Denies any pentecostal or spiritual beliefs. Denies any history of abuse or mistreatment.. On my examination today, 07/26: Patient seen and examined with nurse. Chart reviewed. Case discussed with nursing staff. On my examination today the patient says of her depression "I just let myself get down too low." She denies any suicidal ideation at this time. Slept well overnight. Denies any hopelessness or worthlessness. She tells me "I have a goal." She says that her daughter is flying down to take her back to [place]. No hypomanic or manic symptoms. Denies any audiovisual hallucinations. No delusional material. Complains of some left eye discomfort and swelling but no reported visual decrement. No other physical complaints. Past history is as noted above, unchanged. Patient reports previous trials of Zoloft and Trintellix. She has chronic pain in the form of sciatica. - Inpatient Certification I certify that the inpatient services were ordered in accordance with Medicare regulations governing the order. This includes certification that hospital inpatient services are reasonable and necessary and in the case of services not specified as inpatient-only under 42 CFR 419.22(n), that they are appropriately provided as inpatient services in accordance to with the 2-midnight benchmark under 43 CFR 412.3(e) I certify that inpatient psychiatric hospital services are medically necessary. Evaluation and treatment and/or diagnostic testing are expected to improve the patient's condition. The patient needs on a daily basis, active treatment furnished directly by or requiring the supervision of inpatient psychiatric facility personnel. Estimated Total Length of Stay (Days): 5 (3-5) Plans for Post Hospital Care: Not yet determined Review of Systems All other systems reviewed negative except as stated in HPI [facility] - History History Provided By: Patient - Medical History Medical History: Medical History (Last Updated 07/24/18 @ 19:13 by Lizbeth Owens) Arrhythmia Depression - Tobacco History Second Hand Smoke Exposure: Yes Tobacco Use In Past 30 Days: Yes Smoking Status: Current every day smoker Tobacco Type: Cigarettes - Alcohol History How Often Do You Have a Drink Containing Alcohol: 2 to 3 times a week - Substance Use History Substance History: Active Abuse - Substance Use Type Crack/Cocaine Status: Active Route Used: Inhalation Frequency: 2-3/WEEK Reason for Use: Fit In - Immunization History Tetanus Immunization: >5 Years Hx Influenza Vaccine This Season: No Quality Measures - Psychiatric History Psychological trauma history: See above - Patient Strengths Patient's strengths (minimum of 2): In monitored setting. Verbally fluent. Medications and Allergies Active Medications: Active Medications Acetaminophen (Tylenol) 650 mg PO Q4H PRN PRN Reason: Pain 1-5 or Temp >101F Al Hydrox/Mg Hydrox/Simethicone (Mag-Al Plus Susp Liq) 30 ml PO Q6H PRN PRN Reason: DYSPEPSIA Al Hydroxide/Mg Hydroxide (Milk Of Magnesia Liq) 30 ml PO Q12H PRN PRN Reason: Mild Constipation Diphenhydramine HCl (Benadryl) 50 mg PO HS PRN PRN Reason: INSOMNIA Hydroxyzine HCl (Atarax) 50 mg PO Q6H PRN PRN Reason: ANXIETY Allergies Allergy/AdvReac Type Severity Reaction Status Date / Time No Known Allergies Allergy Verified 07/24/18 18:17 Results - Labs CBC & Chem 7: 07/26/18 08:10 Labs: Laboratory Results - last 24 hr 07/26/18 08:10 Sodium 142 Potassium 3.6 Chloride 110 H Carbon Dioxide 24.4 Anion Gap 8 BUN 10 Creatinine 1.20 H Estimated GFR 48 L Random Glucose 95 Calcium 10.7 H Triglycerides 172 H Cholesterol 159 LDL Cholesterol, Calc 95 HDL Cholesterol 29.8 L Cholesterol/HDL Ratio 5.33 TSH 2.750 Labs reviewed. Exam Vital signs: Vital Signs 07/25/18 16:00 07/25/18 17:43 07/25/18 22:00 Temperature 98.6 F 97.6 F Pulse Rate 64 57 L Respiratory Rate 18 18 18 Blood Pressure 125/68 159/104 H Pulse Oximetry 94 L 99 07/26/18 05:53 Temperature Pulse Rate Respiratory Rate 18 Blood Pressure Pulse Oximetry Intake & Output 07/25/18 07/26/18 07/26/18 18:59 06:59 18:59 Intake Total 360 / 360 360 / 360 360 / 360 Balance 360 / 360 360 / 360 360 / 360 Weight 71.1 kg Intake: Oral 360 / 360 360 / 360 360 / 360 Other: Weight On Admission 71.1 kg Narrative: Physical exam completed by primary team in CDU. On my examination today, the patient appears to be in no acute physical distress. No motor abnormalities noted. No signs of intoxication or withdrawal noted. Labs and vitals reviewed. Mental Status Examination Appearance: Appropriate Consciousness: Alert Orientation: x4 Motor Activity: Other (No motor abnormalities noted) Speech: Unremarkable Language: Adequate Fund of Knowledge: Adequate Attention and Concentration: Adequate Memory: Unremarkable (Grossly intact on clinical exam) Mood: Other (Dysphoric) Affect: Appropriate Thought Process & Associations: Intact Thought Content: Appropriate Hallucination Type: None Delusion Type: None Suicidal Ideation: No (Unclear whether patient is reliable to contract for safety) Suicidal Plan: No Suicidal Intention: No Homicidal Ideation: No Homicidal Plan: No Homicidal Intention: No Insight: Fair Judgment: Impulsive Assessment and Plan - Assessment (1) Adjustment disorder with depressed mood Code(s): F43.21 - Adjustment disorder with depressed mood Status: Acute (2) Polysubstance abuse Code(s): F19.10 - Other psychoactive substance abuse, uncomplicated Status: Acute - Plan Plan: 48-year-old female with psychiatric history as detailed above who presents in transfer from the CDU under a Rodriguez act following sotalol overdose. On my examination today, the patient denies suicidal ideation but has some ongoing issues with low mood. We discussed pharmacotherapeutic options at length for management of this issue. Given her chronic pain history we settle on a trial of Cymbalta. Patient will be admitted to the inpatient unit for observation and stabilization. Admit inpatient. Voluntary status. Start Cymbalta 30 mg daily for management of mood. Atarax as needed for anxiety. Benadryl as needed for sleep. R/B/A for medications discussed with patient. CIWA scale with Ativan for the management of any withdrawal. Seizure precautions. Thiamine and folate. Hospitalist consultation for left eye discomfort and to continue to follow from the medical floor. Check a beta hCG. Vitals every shift. Counselor to see. Collateral information. Disposition planning. Estimated length of stay: 3-5 days. Justification for Continued Inpatient Stay: See above Discharge Planning: Pending outcome of observation Request Healthcare Surrogate/Guardian Advocate?: No
[2018-07-26] MEDS ORDERED: LORazepam 1 MG Tablet PO PRN (09:50)
[2018-07-26] MEDS ORDERED: Haloperidol Inj 5 MG/ML Ampul IV.PUSH PRN (09:50)
--- NOTE | 2018-07-26 13:50 | ECG ---
Date Performed: 07/26/2018 Time Performed: 12:49:47 PTAGE: 48 years EKG: SINUS BRADYCARDIA WITH SINUS ARRHYTHMIA BORDERLINE ECG PREVIOUS TRACING : 07/25/2018 04.14 Since the previous tracing, no significant change noted DOCTOR: Lemuel Turpin Interpretating Date/Time 07/26/2018 13:47:42
--- NOTE | 2018-07-26 14:28 | P.CONIM ---
History of Present Illness Service: [facility] Hospitalist Requesting Physician: Olvin Mcgraw Reason for Consult: follow from medical floor, left eye discomfort Primary Care Provider: UNKNOWN History of Present Illness: This a 48-year-old female patient with past medical history which includes carpal tunnel syndrome bilateral upper extremities, generalized anxiety disorder, major depressive disorder, nicotine dependence and hyperparathyroidism. Patient was brought to the emergency department under [employer] act for local police for psychiatric evaluation. According the [employer] act , the patient attempted overdose on Zoloft and was drinking alcohol. The patient states that her and she took some of his pills believing that it would lower her heart rate, but she has no idea what it was. She states she thought it started with a "SELMA". Patient states she took a handful and states it was approximately 6-7 pills around noon 07/24/18. She admits to drinking alcohol, tequila, since 11 am 07/24/18. She states she has a lot of stress in her life and has been fighting with her boyfriend as well. Patient states that she took the pills to "calm down". Upon further investigating, it appears she took 6-7 tablets of sotalol. Patient reports wanted to go to sleep. Patient was observed then DC to inpatient psych unit. We have been consulted for left eye discomfort. Patient reports that she began having left eye discomfort and left lid swelling which she first noticed this AM. Patient describes the discomfort as constant and mild. Patient denies changes in vision , blurry vision, drainage or trauma to the eye. At this time patient is able to awake to verbal stimuli. Denies shortness of breath chest pain nausea vomiting diarrhea constipation fevers or chills. PMH: carpal tunnel syndrome bilateral upper extremities, generalized anxiety disorder , major depressive disorder, nicotine dependence and hyperparathyroidism PSxH: Cholecystectomy 2017 Family medical history Father had a stroke and heart disease Social history Patient is a EtOH use 2-3 times per week Smokes approximately 1 pack/week only when she drinks Urine tox positive for cocaine and cannabinoids. [facility] Medical History Medical History Arrhythmia (Acute) Depression (Acute) Social History Social History Substance History: Active Abuse Second Hand Smoke Exposure: Yes Smoking Status: Current every day smoker Tobacco Type: Cigarettes How Often Do You Have a Drink Containing Alcohol: 2 to 3 times a week Substance Abuse Detail Crack/Cocaine: Substance Use Status: Active Route Used Substance Abuse: Inhalation Substance Frequency: 2-3/WEEK Substance Abuse Comment: Stated she used to drink daily but now 2-3 times a week. Used cannabis for the first time in years to calm down. Reason for Use: Calm Down, Feels Good and Fit In Immunization History Tetanus Immunization: >5 Years Hx Influenza Vaccine This Season: No Medications and Allergies Allergies Allergy/AdvReac Type Severity Reaction Status Date / Time No Known Allergies Allergy Verified 07/24/18 18:17 Active Medications: Active Medications Acetaminophen (Tylenol) 650 mg PO Q4H PRN PRN Reason: Pain 1-5 or Temp >101F Al Hydrox/Mg Hydrox/Simethicone (Mag-Al Plus Susp Liq) 30 ml PO Q6H PRN PRN Reason: DYSPEPSIA Al Hydroxide/Mg Hydroxide (Milk Of Magnesia Liq) 30 ml PO Q12H PRN PRN Reason: Mild Constipation Diphenhydramine HCl (Benadryl) 50 mg PO HS PRN PRN Reason: INSOMNIA Duloxetine HCl (Cymbalta) 30 mg PO DAILY [facility] Last Admin: 07/26/18 10:20 Dose: 30 mg Flumazenil (Romazecon Inj) 0.2 mg IV.PUSH Q1M PRN PRN Reason: OVERSEDATION Folic Acid (Folic Acid) 1 mg PO DAILY [facility] Stop: 08/01/18 08:59 Haloperidol Lactate (Haldol Inj) 1 mg IV.PUSH Q15M PRN PRN Reason: for severe agitation Hydroxyzine HCl (Atarax) 50 mg PO Q6H PRN PRN Reason: ANXIETY Lorazepam (Ativan) 1 mg PO Q4H PRN PRN Reason: for CIWA 8-10 Lorazepam (Ativan) 2 mg PO Q2H PRN PRN Reason: for CIWA 11-14 Lorazepam (Ativan Inj) 2 mg IV.PUSH Q2H PRN PRN Reason: for CIWA 11-14 Lorazepam (Ativan Inj) 2 mg IV.PUSH Q1H PRN PRN Reason: for CIWA 15-20 Lorazepam (Ativan Inj) 2 mg IV.PUSH Q15M PRN PRN Reason: for CIWA > 20 Lorazepam (Ativan Inj) 1 mg IV.PUSH Q4H PRN PRN Reason: for CIWA 8-10 Multivitamins/Minerals (Theragran-M) 1 tab PO DAILY [facility] Stop: 08/01/18 08:59 Thiamine HCl (Vitamin B1) 100 mg PO DAILY [facility] Physical Exam Vital signs: Last Vital Signs Temp 97.6 F 07/25/18 17:43 Pulse 57 L 07/25/18 17:43 Resp 18 07/26/18 05:53 BP 159/104 H 07/25/18 17:43 Pulse Ox 99 07/25/18 17:43 Narrative: GENERAL: This is a well-nourished, well-developed patient, in no apparent distress. LEFT EYE: upper lid has mild edema with internal stye present CARDIOVASCULAR: Regular rate and rhythm without murmurs, gallops, or rubs. RESPIRATORY: Clear to auscultation. Breath sounds equal bilaterally. No wheezes , rales, or rhonchi. GASTROINTESTINAL: Abdomen soft, non-tender, nondistended. Normal active bowel sounds MUSCULOSKELETAL: Extremities without clubbing, cyanosis, or edema. NEURO: Alert & Oriented x4 to person, place, time, situation. Moves all ext x4 Results Labs CBC & Chem 7: 07/26/18 08:10 Assessment and Plan Assessment (1) Adjustment disorder with depressed mood: Code(s): F43.21 - Adjustment disorder with depressed mood Status: Acute (2) Polysubstance abuse: Code(s): F19.10 - Other psychoactive substance abuse, uncomplicated Status: Acute Plan This a 48-year-old female patient with past medical history which includes carpal tunnel syndrome bilateral upper extremities, generalized anxiety disorder , major depressive disorder, nicotine dependence and hyperparathyroidism. Patient was brought to the emergency department under [employer] act for local police for psychiatric evaluation. According the [employer] act, the patient attempted overdose and was drinking alcohol. Upon further investigating, it appears she took approximately 6-7 tablets of sotalol. Patient reports wanted to go to sleep. Patient was observed then DC to inpatient psych unit. We have been consulted for left eye discomfort. Patient reports that she began having left eye discomfort and left lid swelling which she first noticed this AM. Patient describes the discomfort as constant and mild. Patient denies changes in vision , blurry vision, drainage or trauma to the eye. At this time patient is able to awake to verbal stimuli. Denies shortness of breath chest pain nausea vomiting diarrhea constipation fevers or chills. Adjustment disorder with depressed mood Management per psychiatric team Chalazion Tylenol as needed for discomfort warm compress to affected area Q2H Polysubstance use patient counselled and encouraged to abstain 07/25/18: Sotalol overdose ER provider spoke with poison control @ [id number] 07/24/18. Per ER documentation Poison control recommends, UDS, acetaminophen level, salicylate level, alcohol, CMP, coags, UPT, EKG, cardiac monitoring, symptomatic and supportive care, repeat EKG in 2 hours; monitor for 6 hours. Salicylate low at 2.0. Acetaminophen less than 2.0. Alcohol 104. Urine tox positive for cocaine and cannabinoids. Initial EKG revealed: NSR 61bpm. Normal axis. TWI V2. Mild ST depression V3- V6. QTc 456ms. Repeat EKG showed a prolong Qtc of 475ms which is worse than prior QTc 456ms. repeat EKG Q2 hours until it improves and monitor pt on indirect sales exec. serial QTc 456 -> 475 -> 488 -> 455 -> 442 Continuous telemetry monitoring Consultation to psychiatry, recommending admission to in patient psych for stabilization DC to in patient pysch for stabilization and medication adjustment 07/25/18
[2018-07-27 05:00] VITALS: O2SAT 97
[2018-07-27] MEDS: Multivitamin/Minerals Therapeutic Tablet PO SCH (09:19)
[2018-07-27] MEDS: Folic Acid 1 MG Tablet PO SCH (09:19)
[2018-07-27 09:30] LABS: Hemoglobin A1c 5.3 % (4.3-6.0)
--- NOTE | 2018-07-27 12:10 | P.PNPSY ---
Subjective Chief Complaint: [employer] act Remarks: Reviewed electronic medical record and discussed with nursing staff. Patient in dayroom. Rounded with BINDU Garrison. Patient endorses that after her she combined alcohol and medications due to her grief. She feels that the move away from her family in [place] was out sadness and loss. Her daughter flew down from [place] and is currently packing her mother's car to take her back to be with her family in [place]. Patient is preoccupied with discharge. The plan is for her daughter to drive most of the way back up [place]. Patient denies SI/HI. She feels that her medications are helping and she plans to seek help for her bereavement when she returns to [place]. Review of Systems All other systems reviewed negative except as stated in HPI Mental Status Examination Appearance: Appropriate Consciousness: Alert Orientation: x4 Motor Activity: Other (No motor abnormalities noted) Speech: Unremarkable Language: Adequate Fund of Knowledge: Adequate Attention and Concentration: Adequate Memory: Unremarkable (Grossly intact on clinical exam) Mood: Other (Dysphoric) Affect: Appropriate Thought Process & Associations: Intact Thought Content: Appropriate Hallucination Type: None Delusion Type: None Suicidal Ideation: No (Unclear whether patient is reliable to contract for safety) Suicidal Plan: No Suicidal Intention: No Homicidal Ideation: No Homicidal Plan: No Homicidal Intention: No Insight: Fair Judgment: Impulsive Assessment and Plan - Assessment (1) Adjustment disorder with depressed mood Code(s): F43.21 - Adjustment disorder with depressed mood Status: Acute - Plan Plan: Continue current treatment plan. Psychiatrist to see patient tomorrow. Justification for Continued Inpatient Stay: Moving patient to a less restrictive environment may result in her decompensation. Request Healthcare Surrogate/Guardian Advocate?: No
[2018-07-27 17:25] VITALS: TEMP 98.2
[2018-07-28 06:09] VITALS: BP 121/76; PULSE 58; RESP 16
[2018-07-28] MEDS: Multivitamin/Minerals Therapeutic Tablet PO SCH (08:46)
[2018-07-28] MEDS: Folic Acid 1 MG Tablet PO SCH (08:46)
--- NOTE | 2018-07-28 12:12 | P.DSPSY ---
Psychiatry Discharge Summary Inpatient Psychiatric care?: Yes Advance Directives: No Mental Health Advance Directive: No Health Care Proxy: No - Admission Admission Date: July 25, 2018 15:19 - Admission Diagnosis (1) Adjustment disorder with depressed mood Code(s): F43.21 - Adjustment disorder with depressed mood (2) Polysubstance abuse Code(s): F19.10 - Other psychoactive substance abuse, uncomplicated Brief History: From my consult note of yesterday: Ms. Funk is a 48-year-old female with no reported previous psychiatric diagnoses, who presents under a [place] Act by law enforcement alleging that the patient overdosed on Zoloft and alcohol. The patient reportedly told officers that this was to slow down her heart rate, but officers obtained collateral from the patient's boyfriend indicating that there was some concern for intentional overdose for self-harm. Reviewing the electronic medical record, I see no previous psychiatric contact within our system. The patient has been medically admitted for management of her overdose, and it appears that the patient in fact overdosed on sotalol, not Zoloft. The patient seen and examined. Chart reviewed. Case discussed with midlevel provider from the primary team. On my examination today, the patient says that she made her presenting overdose on 5-7 sotalol tablets in the setting of alcohol intoxication. She says that she made this overdose in front of her boyfriend "just to get attention." She said that she wanted her boyfriend to listen to her, because she is not happy being in [facility] and wants to return to [place] where her children are located. She does admit to feeling depressed and her affect is fairly dysphoric. She says that she has been feeling this way since her 's passing in 12/2017. In addition to low mood, the patient endorses 15-20 pound weight loss since 12/2017 secondary to not eating properly. She seems fairly anhedonic. She denies any suicidal or homicidal ideation at this time, although it is unclear whether she is reliable to contract for safety. She denies any audiovisual hallucinations. I can elicit no delusional material. I can elicit no hypomanic or manic symptoms, nor does the patient provide any history of same. The remainder of the psychiatric ROS is negative. No acute physical complaints. With the patient's permission, I did endeavor to obtain collateral information from her boyfriend, Kostas Martinez at [phone]. I have left a generic voicemail for Mr. Martinez requesting a call back. PAST PSYCHIATRIC HISTORY: The patient reports that she has had difficulty adjusting following her 's passing, although it does not appear she has received a formal psychiatric diagnosis. She has seen psychiatrists in the past. She denies any history of psychiatric admissions or suicide attempts, however. FAMILY HISTORY: Patient reports that one of her children completed suicide in 2006. CHEMICAL DEPENDENCY HISTORY: The patient admits to use of crack cocaine and alcohol. She says that her alcohol consumption has cut down recently. She does admit to drinking more heavily than she has lately last night. Typical consumption is 1 or 2 mixed drinks per week per patient report. She denies any history of blackouts, DTs, or seizures. She also admits to use of cannabis for the first time since adolescence last night to "mellow me out." SOCIAL HISTORY: The patient reports that her second in 12/2017. She was previously and . She is presently with her boyfriend Kostas and has been with him for about 6 months. She has 4 children. She denies any history. Denies any legal history. Denies any access to guns or firearms. Denies any quaker or spiritual beliefs. Denies any history of abuse or mistreatment.. On my examination today, 07/26: Patient seen and examined with nurse. Chart reviewed. Case discussed with nursing staff. On my examination today the patient says of her depression "I just let myself get down too low." She denies any suicidal ideation at this time. Slept well overnight. Denies any hopelessness or worthlessness. She tells me "I have a goal." She says that her daughter is flying down to take her back to [place]. No hypomanic or manic symptoms. Denies any audiovisual hallucinations. No delusional material. Complains of some left eye discomfort and swelling but no reported visual decrement. No other physical complaints. Past history is as noted above, unchanged. Patient reports previous trials of Zoloft and Trintellix. She has chronic pain in the form of sciatica. Tobacco Use In Past 30 Days: Yes How Often Do You Have a Drink Containing Alcohol: 2 to 3 times a week Hospital Course: Patient's hospital course was uneventful, she was no behavioral problems. She denied suicidality or homicidality voices or visions from day of admission. She now regrets the fact that she did not return home to her family in [place] after the of her . She has been calm and cooperative compliant with her medications. Patient's daughter has come down here from [place] to sweet pickle maker her mother and bring her back home with her At this time patient longer meets criteria for inpatient psychiatric hospitalization. This should be discharged today to her daughter with Rx times 1 month to follow- up mental health services in [place] - Discharge Discharge Date: 07/28/18 - Discharge Diagnosis (1) Adjustment disorder with depressed mood Code(s): F43.21 - Adjustment disorder with depressed mood Status: Acute (2) Polysubstance abuse Code(s): F19.10 - Other psychoactive substance abuse, uncomplicated Status: Acute Discharge Disposition: Home - Discharge Instructions Discharge Diet: Regular Diet Activities You Can Perform: Regular- No Restrictions - Discharge Time > 30 minutes Mental Status Examination Appearance: Appropriate Consciousness: Alert Orientation: x4 Motor Activity: Other (No motor abnormalities noted) Speech: Unremarkable Language: Adequate Fund of Knowledge: Adequate Attention and Concentration: Adequate Memory: Unremarkable (Grossly intact on clinical exam) Mood: Other (Dysphoric) Affect: Appropriate Thought Process & Associations: Intact Thought Content: Appropriate Hallucination Type: None Delusion Type: None Suicidal Ideation: No (Unclear whether patient is reliable to contract for safety) Suicidal Plan: No Suicidal Intention: No Homicidal Ideation: No Homicidal Plan: No Homicidal Intention: No Insight: Fair Judgment: Impulsive Discharge/Advance Care Plan - Results Vital Signs: Last Vital Signs Temp 98.2 F 07/28/18 06:07 Pulse 58 L 07/28/18 06:07 Resp 16 07/28/18 06:07 BP 121/76 07/28/18 06:07 Pulse Ox 97 07/28/18 06:07 Lab Results: Laboratory Results Hemoglobin A1c 5.3 % (4.3-6.0) 07/26/18 08:10 Triglycerides 172 mg/dL (42-150) H 07/26/18 08:10 Cholesterol 159 mg/dL (120-200) 07/26/18 08:10 LDL Cholesterol, Calc 95 mg/dL (0-99) 11/24/18 08:10 HDL Cholesterol 29.8 mg/dL (40.0-60.0) L 07/26/18 08:10 TSH 2.750 uIU/mL (0.358-3.740) 07/26/18 08:10 Summary of Procedures: None done Pending Results: None - Medications Number of antipsychotic medications at discharge: 0 - Discharge Care Plan Goals to Promote Your Health: * To prevent worsening of your condition and complications * To maintain your health at the optimal level Directions to Meet Your Goals: Take your medications as prescribed Follow your dietary instruction Follow activity as directed Keep your appointments as scheduled Take your immunizations and boosters as scheduled If your symptoms worsen call your PCP, if no PCP go to Urgent Care Center or Emergency Room For 25/03 questions related to your inpatient stay or results of tests pending at discharge, please contact Dr. Joseph Alvares MD at Smoking is Dangerous to Your Health. Avoid second hand smoking
== END 2018-07-28 13:20 | disposition home or self-care (01) ==
LOC: H260 15:19
PROVIDERS: ADMIT Psychiatry & Neurology Psychiatry; ATTEND Psychiatry & Neurology Psychiatry
DX: Z63.4 Disappearance and death of family member; F43.21 Adjustment disorder with depressed mood; F14.10 Cocaine abuse, uncomplicated; R63.4 Abnormal weight loss; H00.14 Chalazion left upper eyelid; F41.1 Generalized anxiety disorder; T51.0X2A Toxic effect of ethanol, intentional self-harm, initial encounter; G56.03 Carpal tunnel syndrome, bilateral upper limbs; T44.7X2A Poisoning by beta-adrenoreceptor antagonists, intentional self-harm, initial encounter; F17.210 Nicotine dependence, cigarettes, uncomplicated; M54.30 Sciatica, unspecified side; E21.3 Hyperparathyroidism, unspecified